=== PATIENT | male | born 1985 | race Caucasian/White ===

== ENCOUNTER 2020-06-04 10:14 | Day surgery (SDC) | payer BC ==
[~2020-06-04] VITALS: Ht 188 cm; Wt 85.6 kg
[~2020-06-04 10:14] MED LIST: NO HOME MEDICATIONS
[2020-06-04] MEDS ORDERED: CHANTIX START M1 TAB PO (10:45)
[2020-06-04] MEDS ORDERED: PRILOTC PO (10:46)
[2020-06-04 10:47] VITALS: BP 133/78; PULSE 73; TEMP 98.8
[2020-06-04] MEDS ORDERED: NORCO 325 MG-51 TAB PO (15:14)
[2020-06-04 15:45] VITALS: BP 136/67; PULSE 85; TEMP 96.6
--- NOTE | 2020-06-04 15:45 | NUR ---
Dr. Bardales gives verbal order that the patient does not need to void prior to discharge.
--- NOTE | 2020-06-04 15:45 | NUR ---
Patient arrives to [facility] via cart, accompanied by [employer] Rosanna Centeno. He is alert and oriented. Monitoring is applied - VSS and WNL on room air. He states that his pain is mild. He does not have nausea. PIV to TKO. Abdomen has 3 operative sites covered with clean, dry, intact bandaids. Abdomen is soft, non-distended, tender. He is tolerating ice chips. His mother is at the bedside.
[2020-06-04 16:00] VITALS: BP 132/56; PULSE 76
--- NOTE | 2020-06-04 16:00 | NUR ---
Patient is offered and receives water and pudding to eat.
[2020-06-04 16:15] VITALS: BP 127/65; PULSE 74
--- NOTE | 2020-06-04 16:15 | NUR ---
Patient is given R[place] for pain. He is tolerating PO well.
[2020-06-04 16:30] VITALS: BP 128/70; PULSE 76
[2020-06-04 16:45] VITALS: BP 126/71; PULSE 79
--- NOTE | 2020-06-04 16:45 | NUR ---
Patient is resting in his room. He states that his abdominal discomfort is unchanged after [place], but that he would like to go home and rest in his own bed, as the pain is manageable. Will return with discharge instructions.
--- NOTE | 2020-06-04 17:04 | NUR ---
Patient has met discharge criteria. Discharge instructions are discussed. He denies any questions and verbalizes understanding. PIV is removed with catheter intact and hemostasis achieved. He changes to his clothing independently. He is escorted to the exit via wheelchair by staff. He is discharged to home to the care of his mother, who drives him home in a private vehicle at 1704.
== END 2020-06-04 17:04 | disposition home or self-care (01) ==
LOC: SDCO 10:14
DX: K40.20 Bilateral inguinal hernia, without obstruction or gangrene, not specified as recurrent (principal); K21.9 Gastro-esophageal reflux disease without esophagitis; F17.210 Nicotine dependence, cigarettes, uncomplicated; Z20.822 Contact with and (suspected) exposure to COVID-19
CPT/HCPCS: C1781; J0690; J1100; J1885; J2250; J2405; J2704; J3010; J7120